=== PATIENT | female | born 1960 | race Caucasian/White ===

== ENCOUNTER → 2022-02-14 | Outpatient (CLI) | payer OTHER | LOC: M WHC 09:20 | PROVIDERS: ATTEND Student in an Organized Health Care Education/Training Program | DX: Z12.31 Encounter for screening mammogram for malignant neoplasm of breast (principal) ==

== ENCOUNTER → 2022-02-15 | Outpatient (CLI) | payer OTHER ==
[2022-02-15 12:59] LABS: BASO # 0.1 10^3/uL (0.0-0.2); BASO % 1.1 % (0.0-1.0); EOS # 0.3 10^3/uL (0.0-0.5); EOS % 4.8 % (0.0-3.0); HEMATOCRIT 46.1 % (36.0-47.0); HEMOGLOBIN 14.9 g/dl (12.0-15.5); LYMPH # 2.7 10^3/uL (1.5-5.0); LYMPH % 47.7 % (24.0-44.0); MEAN CORPUSCULAR HEMOGLOBIN 31.6 pg (27.0-33.0); MEAN CORPUSCULAR HGB CONC 32.3 g/dl (32.0-36.5); MEAN CORPUSCULAR VOLUME 97.7 fl (80.0-96.0); MONO # 0.5 10^3/uL (0.0-0.8); MONO % 8.2 % (2.0-8.0); NEUTROPHILS # 2.2 10^3/uL (1.5-8.5); PLATELET COUNT, AUTOMATED 210 10^3/uL (150-450); RED BLOOD COUNT 4.72 10^6/uL (4.00-5.40); WHITE BLOOD COUNT 5.6 10^3/uL (4.0-10.0)
[2022-02-15 13:54] LABS: ALBUMIN 4.2 G/DL (3.2-5.2); CARBON DIOXIDE LEVEL 28 MMOL/L (20-31); CHLORIDE LEVEL 104 MMOL/L (98-107); POTASSIUM SERUM 4.3 MMOL/L (3.5-5.1); SODIUM LEVEL 141 MMOL/L (136-145)
[2022-02-15 13:59] LABS: BILIRUBIN,TOTAL 0.7 MG/DL (0.3-1.2); BLOOD UREA NITROGEN 17 MG/DL (9-23); TRIGLYCERIDES LEVEL 92 MG/DL (<150)
[2022-02-15 14:00] LABS: ALKALINE PHOSPHATASE 85 U/L (46-116); CALCIUM LEVEL 9.6 MG/DL (8.3-10.6); GLUCOSE, FASTING 86 MG/DL (74-106); TOTAL PROTEIN 7.2 G/DL (5.7-8.2)
[2022-02-15 14:02] LABS: ALT/SGPT 16 U/L (7.0-40); AST/SGOT 23 U/L (<34); CHOLESTEROL LEVEL 267 MG/DL (<200); CHOLESTEROL RISK RATIO 2.55 (<5); GLOMERULAR FILTRATION RATE > 60.0 (>45); HDL CHOLESTEROL 104.5 MG/DL (>40); LDL CHOLESTEROL 144.1 MG/DL (<100); NON-HDL-C 163 MG/DL
== END ==
LOC: M WUC 10:26
PROVIDERS: ATTEND Student in an Organized Health Care Education/Training Program
DX: Z00.00 Encounter for general adult medical examination without abnormal findings (principal)

== ENCOUNTER → 2022-04-12 | Outpatient (CLI) | payer OTHER ==
[2022-04-12 10:14] LABS: BLOOD UREA NITROGEN 15 MG/DL (9-23); CALCIUM LEVEL 9.2 MG/DL (8.3-10.6); CARBON DIOXIDE LEVEL 30 MMOL/L (20-31); CHLORIDE LEVEL 104 MMOL/L (98-107); CREATININE FOR GFR 0.79 MG/DL (0.55-1.30); GLOMERULAR FILTRATION RATE > 60.0 (>45); GLUCOSE, FASTING 83 MG/DL (74-106); POTASSIUM SERUM 4.3 MMOL/L (3.5-5.1); SODIUM LEVEL 140 MMOL/L (136-145)
== END ==
LOC: M EKG 08:46
PROVIDERS: ATTEND Student in an Organized Health Care Education/Training Program
DX: Z01.818 Encounter for other preprocedural examination (principal)

== ENCOUNTER → 2022-05-25 | Outpatient (CLI) | payer OTHER | LOC: M RAD 15:46 | PROVIDERS: ATTEND Student in an Organized Health Care Education/Training Program | DX: Z87.891 Personal history of nicotine dependence (principal) ==

== ENCOUNTER 2022-07-22 08:50 | Day surgery (SDC) | payer OTHER ==
[~2022-07-22] VITALS: Ht 162.6 cm; Wt 53.4 kg
[~2022-07-22 08:50] MED LIST: CLAR10CA3 PO; NS 1,000 ML IV ONE
[2022-07-22] MEDS ORDERED: GLYCOPYRROLATE INJ 0.2 MG/ML 2 ML VIAL As Ordered ONE (10:14)
[2022-07-22 10:50] VITALS: BP 102/58
== END 2022-07-22 10:57 | disposition home or self-care (01) ==
LOC: M OPP 08:50
PROVIDERS: ATTEND Surgery
DX: Z12.11 Encounter for screening for malignant neoplasm of colon (principal); K64.9 Unspecified hemorrhoids; F17.200 Nicotine dependence, unspecified, uncomplicated

== ENCOUNTER → 2022-09-06 | Outpatient (REF) | payer MEDICAID, OTHER ==
[~2022-09-06] MED LIST changes: -NS 1,000 ML IV ONE
== END ==
LOC: M SFHCLERA 18:12
PROVIDERS: ATTEND Student in an Organized Health Care Education/Training Program
DX: Z12.4 Encounter for screening for malignant neoplasm of cervix (principal)

== ENCOUNTER → 2023-03-03 | Outpatient (CLI) | payer MEDICAID, OTHER ==
[2023-03-03 11:05] LABS: APPEARANCE, URINE CLEAR (CLEAR); BACTERIA, URINE AUTO NEGATIVE (NEGATIVE); BILIRUBIN, URINE AUTO NEGATIVE (NEGATIVE); BLOOD, URINE BLOOD NEGATIVE (NEGATIVE); COLOR, URINE YELLOW (YELLOW); GLUCOSE, URINE (UA) AUTO NEGATIVE (NEGATIVE); KETONE, URINE AUTO NEGATIVE (NEGATIVE); LEUKOCYTE ESTERASE, URINE AUTO 3+ (NEGATIVE); NITRITE, URINE AUTO NEGATIVE (NEGATIVE); PROTEIN, URINE AUTO NEGATIVE (NEGATIVE); RBC, URINE AUTO 1 /HPF (0-3); SPECIFIC GRAVITY URINE AUTO 1.011 (1.002-1.035); SQUAMOUS EPITHELIAL CELL UR AU 1 /HPF (0-6); UROBILINOGEN, URINE AUTO 0.2 mg/dL (0.0-2.0); WBC, URINE AUTO 8 /HPF (0-3)
[2023-03-03 11:16] LABS: BASO % 0.6 % (0.0-1.0); EOS # 0.2 10^3/uL (0.0-0.5); EOS % 4.4 % (0.0-3.0); HEMATOCRIT 42.1 % (36.0-47.0); HEMOGLOBIN 13.8 g/dl (12.0-15.5); LYMPH # 2.1 10^3/uL (1.5-5.0); LYMPH % 44.1 % (24.0-44.0); MEAN CORPUSCULAR HEMOGLOBIN 31.4 pg (27.0-33.0); MEAN CORPUSCULAR HGB CONC 32.8 g/dl (32.0-36.5); MEAN CORPUSCULAR VOLUME 95.9 fl (80.0-96.0); MONO # 0.4 10^3/uL (0.0-0.8); MONO % 8.7 % (2.0-8.0); PLATELET COUNT, AUTOMATED 181 10^3/uL (150-450); RED BLOOD COUNT 4.39 10^6/uL (4.00-5.40); WHITE BLOOD COUNT 4.7 10^3/uL (4.0-10.0)
[2023-03-03 11:41] LABS: ALBUMIN 3.8 G/DL (3.2-5.2); ALKALINE PHOSPHATASE 68 U/L (46-116); ALT/SGPT 16 U/L (7.0-40); AST/SGOT 20 U/L (<34); BILIRUBIN,TOTAL 0.5 MG/DL (0.3-1.2); BLOOD UREA NITROGEN 14 MG/DL (9-23); CALCIUM LEVEL 9.6 MG/DL (8.3-10.6); CARBON DIOXIDE LEVEL 29 MMOL/L (20-31); CHLORIDE LEVEL 107 MMOL/L (98-107); CHOLESTEROL LEVEL 260 MG/DL (<200); CREATININE FOR GFR 0.82 MG/DL (0.55-1.30); GLOMERULAR FILTRATION RATE > 60.0 (>45); GLUCOSE, FASTING 82 MG/DL (74-106); HDL CHOLESTEROL 92.8 MG/DL (>40); LDL CHOLESTEROL 150.6 MG/DL (<100); NON-HDL-C 167.2 MG/DL; POTASSIUM SERUM 4.3 MMOL/L (3.5-5.1); SODIUM LEVEL 141 MMOL/L (136-145); TOTAL PROTEIN 6.6 G/DL (5.7-8.2); TRIGLYCERIDES LEVEL 83 MG/DL (<150)
[2023-03-03 11:42] LABS: FOLATE 22.1 NG/ML (>5.4); THYROID STIMULATING HORMONE 1.768 uIU/ML (0.55-4.78); TOTAL 25(OH) VITAMIN D 20.1 NG/ML (20.0-100.0)
[2023-03-03 11:43] LABS: FREE T4 1.06 NG/DL (0.89-1.76); VITAMIN B12 LEVEL 345 PG/ML (211-911)
== END ==
LOC: M EKG 09:34
PROVIDERS: ATTEND Physician Assistant
DX: R07.89 Other chest pain (principal); R53.83 Other fatigue; Z78.0 Asymptomatic menopausal state; Z82.49 Family history of ischemic heart disease and other diseases of the circulatory system

== ENCOUNTER → 2023-03-15 | Outpatient (CLI) | payer MEDICAID | LOC: M WHC 10:20 | PROVIDERS: ATTEND Physician Assistant | DX: Z12.31 Encounter for screening mammogram for malignant neoplasm of breast (principal) ==

== ENCOUNTER → 2023-05-29 | Outpatient (CLI) | payer OTHER | LOC: M WHC 09:16 | PROVIDERS: ATTEND Physician Assistant | DX: Z78.0 Asymptomatic menopausal state (principal) ==

== ENCOUNTER → 2023-05-31 | Outpatient (CLI) | payer OTHER | LOC: M RAD 16:18 | PROVIDERS: ATTEND Physician Assistant | DX: Z87.891 Personal history of nicotine dependence (principal) ==

== ENCOUNTER → 2024-03-29 | Outpatient (CLI) | payer MEDICARE | LOC: M WHC 07:42 | PROVIDERS: ATTEND Family Medicine | DX: Z12.31 Encounter for screening mammogram for malignant neoplasm of breast (principal) ==

== ENCOUNTER → 2024-10-08 | Outpatient (REF) | payer MEDICARE | LOC: M SFHCLERA 16:00 | DX: Z53.9 Procedure and treatment not carried out, unspecified reason (principal) ==

== ENCOUNTER → 2025-03-18 | Outpatient (CLI) | payer MEDICARE | LOC: M RAD 09:55 | PROVIDERS: ATTEND Family Medicine | DX: Z87.891 Personal history of nicotine dependence (principal) ==